=== PATIENT | female | born 1945 | race American Indian/Alaskan Native ===

== ENCOUNTER 2021-12-02 13:45 | Inpatient (IN) | payer MEDICARE ==
[2021-12-02] MEDS ORDERED: ONDANSETRON 4 MG/2 ML INJ IV PRN (13:47)
[2021-12-02] MEDS ORDERED: ALBUTEROL 2.5 MG/3 ML NEBU IH PRN (13:47)
[2021-12-02] MEDS ORDERED: ACETAMINOPHEN 325 MG TAB PO PRN (13:47)
--- NOTE | 2021-12-02 13:50 | History and Physical Report ---
History of Present Illness Date of admission: 12/02/21 13:45 Chief complaint: Shortness of breath History of present illness: 76 YO Female with Vascular Dementia, Cerebral Atherosclerosis, Obesity, HTN, HLD, CHF, Seizure Disorder, CAD S/P CABG admitted to [facility] for psychiatric stabilization and was found to have increased confusion today with a pulse oximetry of 77% on room air. Patient seen and evaluated and found to have clinical assessment consistent with acute hypoxemic respiratory failure as well as CHF decompensation. Patient admitted directly to telemetry and initiated on CHF protocol. Patient also found to have elevated D-dimer. CTA chest was ordered and is pending at time of evaluation. Patient initiated on empiric therapeutic anticoagulation while awaiting results of CTA chest. Patient also have elevated troponin level which is consistent with NSTEMI. Cardiology team consulted. Patient is confused with diminished cognition which is her baseline. Patient has diminished cognition at time of evaluation but has a positive gag reflex and is able protect her airway without difficulty. Past History Past Medical History: heart failure, hypertension, hyperlipidemia, seizures Past Surgical History: CABG Social history: single. denies: smoking, alcohol abuse, prescription drug abuse Family history: diabetes, hypertension Medications and Allergies Allergies Allergy/AdvReac Type Severity Reaction Status Date / Time lisinopril Allergy Swelling Verified 11/24/21 01:53 tetracycline Allergy Hives Verified 11/24/21 01:53 aspirin AdvReac Vomiting Verified 11/24/21 01:54 codeine AdvReac Itching Verified 11/24/21 01:52 Home Medications Medication Instructions Recorded Confirmed Last Taken Type AtorvaSTATin [Lipitor] 40 mg PO QHS 11/24/21 11/24/21 Unknown History PARoxetine HCL [PARoxetine] 40 mg PO HS 11/24/21 11/24/21 Unknown History Potassium Chloride [Klor-Con 10] 10 meq PO DAILY 11/24/21 11/24/21 Unknown History QUEtiapine [SEROquel] 100 mg PO HS 11/24/21 11/24/21 Unknown History carvediloL [Coreg] 12.5 mg PO BID 11/24/21 11/24/21 Unknown History PARoxetine [Paxil] 40 mg PO QHS tablet 12/02/21 Unknown Rx QUEtiapine [SEROquel] 150 mg PO BID tablet 12/02/21 Unknown Rx traZODone [Desyrel] 75 mg PO QHS tablet 12/02/21 Unknown Rx Active Meds: Active Medications Acetaminophen (Acetaminophen 325 Mg Tab) 650 mg PO Q4H PRN PRN Reason: Pain MILD(1-3)/Fever >100.5/SAM Albuterol (Albuterol 2.5 Mg/3 Ml Nebu) 2.5 mg IH Q4HRT PRN PRN Reason: Shortness Of Breath Hydromorphone HCl (Hydromorphone 0.5 Mg/0.5 Ml Inj) 0.5 mg IV Q13H PRN PRN Reason: Pain , Severe (7-10) Oxycodone/Acetaminophen (Oxycodone /Acetaminophen 5-325mg Tab) 1 tab PO Q6H PRN PRN Reason: Pain, Moderate (4-6) Review of Systems ROS unobtainable: due to mental status Exam - Constitutional General appearance: Present: mild distress, obese - EENT Eyes: Present: PERRL ENT: clear oral mucosa, hearing decreased - Neck Neck: Present: supple, normal ROM - Respiratory Respiratory effort: labored Respiratory: bilateral: diminished, rhonchi - Cardiovascular Heart Sounds: Present: S1 & S2. Absent: rub, click - Extremities Extremities: pulses symmetrical Extremity abnormal: edema Peripheral Pulses: within normal limits - Abdominal General gastrointestinal: Present: soft, non-tender, non-distended, normal bowel sounds Female genitourinary: Present: normal - Integumentary Integumentary: Present: clear, warm, dry - Musculoskeletal Musculoskeletal: generalized weakness - Psychiatric Psychiatric: no appropriate mood/affect, no intact judgment & insight, no memory intact, cooperative - Neurologic Neurologic: CNII-XII intact, no focal deficits, moves all extremities, no gait normal Assessment and Plan - Patient Problems (1) NSTEMI (non-ST elevated myocardial infarction) Current Visit: Yes Status: Acute Plan to address problem: ACS protocol: Serial cardiac enzymes, EKG, telemetry monitoring, therapeutic anticoagulation, cardiology team consulted, echocardiogram ordered and pending at time of admission. Further care and evaluation as per cardiology team. (2) Acute hypoxemic respiratory failure Current Visit: Yes Status: Acute Plan to address problem: Supplemental oxygen, pulse oximetry, chest x-ray, nebulizer therapy, CT scan chest, arterial blood gas, pulmonary toilet (3) CHF (congestive heart failure) Current Visit: No Status: Acute Qualifiers: Heart failure chronicity: chronic Plan to address problem: Strict I's/O, monitor urine output every shift, daily weight, afterload reduction, blood pressure control, thyroid panel, magnesium level, echocardiogram ordered and pending at time of admission, cardiology team cons ulted. (4) Cerebral atherosclerosis Current Visit: No Status: Acute Plan to address problem: Risk factor reduction, supportive care. (5) Generalized anxiety disorder Current Visit: No Status: Acute Plan to address problem: Benzodiazepine therapy as clinically indicated. (6) Hypertension Current Visit: No Status: Acute Qualifiers: Hypertension type: primary hypertension Qualified Code(s): I10 - Essential (primary) hypertension Plan to address problem: Monitor blood pressure every shift, continue medical management. (7) Major depression Current Visit: No Status: Acute Qualifiers: Psychotic features: with psychotic features Plan to address problem: Continue medical management, mental health team consult placed. (8) Vascular dementia with behavioral disturbance Current Visit: No Status: Acute Plan to address problem: Performed, verbal redirection, benzodiazepine therapy as clinically indicated. (9) DVT prophylaxis Current Visit: Yes Status: Acute Plan to address problem: SCD to bilateral lower extremities while in bed, continue therapeutic anticoagulation. (10) Advance care planning Current Visit: No Status: Acute Plan to address problem: Disease education conducted, care plan discussed, diagnosis discussed, prognosis discussed, patient is full code, +30 minutes. (11) Preventative health care Current Visit: No Status: Acute Plan to address problem: Outpatient follow-up with primary care physician for all age and risk factor appropriate screening test. Outpatient psychiatry follow-up.
[2021-12-02] MEDS: FUROSEMIDE 20 MG/2 ML INJ IV SCH (19:08)
[2021-12-02 19:22] LABS: ABG Base Excess -0.1 mmol/L (-2.0-3.0); ABG HCO3 23.8 mmol/L (20.0-26.0); ABG Methemoglobin 0.3 % (0.0-1.5); ABG Oxygen Saturation 89.5 % (95.0-99.0); ABG PCO2 35.8 mm Hg; ABG PH 7.441 pH Units (7.350-7.450); ABG PO2 52.4 mm Hg (80.0-90.0)
[2021-12-02 21:59] LABS: Chol/HDL Ratio 4.77 %
[2021-12-02] MEDS ORDERED: NON-FORMULARY EACH (Paroxetine Hcl [Paroxetine] 40 MG Tablet) PO SCH (22:00)
[2021-12-02] MEDS: carvediloL 12.5 MG TAB PO SCH (22:32)
[2021-12-02 22:37] LABS: Free T4 (Free Thyroxine) 1.18 ng/dL (0.76-1.46)
[2021-12-02] MEDS: traZODone 50 MG TAB PO SCH (22:56)
[2021-12-02] MEDS: QUEtiapine 100 MG TAB PO SCH (22:58)
[2021-12-02] MEDS: PARoxetine 20 MG TAB PO SCH (22:58)
[2021-12-02] MEDS ORDERED: ZIPRASIDONE MESYLATE 20 MG VIAL IM ONE (23:48)
[2021-12-03] MEDS ORDERED: WATER FOR INJ Sterile (PF) 10 ML ONE ×2 (00:17→09:18)
[2021-12-03] MEDS: ENOXAPARIN 80 MG/0.8 ML INJ SUB-Q SCH ×4 (00:34→21:52)
--- NOTE | 2021-12-03 08:27 | Progress Note ---
Subjective Date of service: 12/02/21 Subjective Comment: Patients oxygen level in the 80%. Ddimer elevated.Patient discharged to medical floor for further workup. Medications and Allergies Allergies Allergy/AdvReac Type Severity Reaction Status Date / Time lisinopril Allergy Swelling Verified 11/24/21 01:53 tetracycline Allergy Hives Verified 11/24/21 01:53 aspirin AdvReac Vomiting Verified 11/24/21 01:54 codeine AdvReac Itching Verified 11/24/21 01:52 Home Medications Medication Instructions Recorded Confirmed Last Taken Type AtorvaSTATin [Lipitor] 40 mg PO QHS 11/24/21 11/24/21 Unknown History PARoxetine HCL [PARoxetine] 40 mg PO HS 11/24/21 11/24/21 Unknown History Potassium Chloride [Klor-Con 10] 10 meq PO DAILY 11/24/21 11/24/21 Unknown History QUEtiapine [SEROquel] 100 mg PO HS 11/24/21 11/24/21 Unknown History carvediloL [Coreg] 12.5 mg PO BID 11/24/21 11/24/21 Unknown History PARoxetine [Paxil] 40 mg PO QHS tablet 12/02/21 Unknown Rx QUEtiapine [SEROquel] 150 mg PO BID tablet 12/02/21 Unknown Rx traZODone [Desyrel] 75 mg PO QHS tablet 12/02/21 Unknown Rx Active Meds: Active Medications Acetaminophen (Acetaminophen 325 Mg Tab) 650 mg PO Q4H PRN PRN Reason: Pain MILD(1-3)/Fever >100.5/SAM Albuterol (Albuterol 2.5 Mg/3 Ml Nebu) 2.5 mg IH Q4HRT PRN PRN Reason: Shortness Of Breath Atorvastatin Calcium (Atorvastatin 40 Mg Tab) 40 mg PO QHS [facility] Last Admin: 12/02/21 22:56 Dose: 40 mg Carvedilol (Carvedilol 12.5 Mg Tab) 12.5 mg PO BID [facility] Last Admin: 12/02/21 22:32 Dose: 12.5 mg Enoxaparin Sodium (Enoxaparin 80 Mg/0.8 Ml Inj) 80 mg SUB-Q Q12HR [facility]; Protocol Last Admin: 12/03/21 00:34 Dose: 80 mg Furosemide (Furosemide 20 Mg/2 Ml Inj) 20 mg IV BID@0600,1800 [facility] Last Admin: 12/02/21 19:08 Dose: 20 mg Hydromorphone HCl (Hydromorphone 0.5 Mg/0.5 Ml Inj) 0.5 mg IV Q13H PRN PRN Reason: Pain , Severe (7-10) Magnesium Sulfate (Magnesium Sulfate 2gm/50ml) 2 gm in 50 mls @ 25 mls/hr IV ONCE ONE Stop: 12/03/21 10:22 Ondansetron HCl (Ondansetron 4 Mg/2 Ml Inj) 4 mg IV Q8H PRN PRN Reason: Nausea And Vomiting Oxycodone/Acetaminophen (Oxycodone /Acetaminophen 5-325mg Tab) 1 tab PO Q6H PRN PRN Reason: Pain, Moderate (4-6) Paroxetine HCl (Paroxetine 20 Mg Tab) 40 mg PO QHS [facility] Last Admin: 12/02/21 22:58 Dose: 40 mg Quetiapine Fumarate (Quetiapine 100 Mg Tab) 100 mg PO HS [facility] Last Admin: 12/02/21 22:58 Dose: 100 mg Sodium Chloride (Sodium Chloride 0.9% 10 Ml Flush Syringe) 10 ml IV BID [facility] Last Admin: 12/02/21 21:45 Dose: 10 ml Sodium Chloride (Sodium Chloride 0.9% 10 Ml Flush Syringe) 10 ml IV PRN PRN PRN Reason: LINE FLUSH Trazodone HCl (Trazodone 50 Mg Tab) 75 mg PO QHS [facility] Last Admin: 12/02/21 22:56 Dose: 75 mg Results - Results Labs/Vitals: Laboratory Last Values ABG pH 7.441 pH Units (7.350-7.450) 12/02/21 18:53 ABG pCO2 35.8 mm Hg 12/02/21 18:53 ABG pO2 52.4 mm Hg (80.0-90.0) L 12/02/21 18:53 ABG HCO3 23.8 mmol/L (20.0-26.0) 12/02/21 18:53 ABG O2 Saturation 89.5 % (95.0-99.0) L 12/02/21 18:53 ABG O2 Content 12.2 (0.0-44) 12/02/21 18:53 ABG Base Excess -0.1 mmol/L (-2.0-3.0) 12/02/21 18:53 ABG Hemoglobin 9.8 gm/dl (12.0-16.0) L 12/02/21 18:53 ABG Carboxyhemoglobin 1.5 % (0.0-5.0) 12/02/21 18:53 ABG Methemoglobin 0.3 % (0.0-1.5) 12/02/21 18:53 Oxyhemoglobin 87.9 % (95.0-99.0) L 12/02/21 18:53 FiO2 21 % 12/02/21 18:53 POC Glucose 88 mg/dL (70-105) 12/03/21 00:35 Magnesium 1.30 mg/dL (1.7-2.3) L 12/02/21 Unknown Troponin T 0.038 ng/mL (0.00-0.029) H 12/02/21 Unknown Triglycerides 117 mg/dL (2-149) 12/02/21 Unknown Cholesterol 172 mg/dL (50-199) 12/02/21 Unknown LDL Cholesterol Direct 111 mg/dL (50-130) 12/02/21 Unknown HDL Cholesterol 36 mg/dL (40-59) L 12/02/21 Unknown Cholesterol/HDL Ratio 4.77 % 12/02/21 Unknown TSH 0.874 mlU/mL (0.270-4.200) 12/02/21 Unknown Free T4 1.18 ng/dL (0.76-1.46) 12/02/21 Unknown Last Vital Signs Temp 97.4 F L 12/03/21 07:25 Pulse 91 H 12/03/21 07:25 Resp 22 12/03/21 07:25 BP 110/50 12/03/21 07:25 Pulse Ox 94 12/03/21 07:25
[2021-12-03] MEDS ORDERED: MAGNESIUM SULFATE 2 GM/50 ML BAG IV ONE (09:00)
[2021-12-03] MEDS ORDERED: ZIPRASIDONE MESYLATE 20 MG VIAL IM NR (09:00)
[2021-12-03] MEDS: FUROSEMIDE 20 MG/2 ML INJ IV SCH (09:07)
[2021-12-03] MEDS ORDERED: MAGNESIUM SULFATE 2 GM in SODIUM CHLORIDE 0.9% 50 ML IV ONE (10:00)
[2021-12-03 10:59] LABS: Basophils % (Auto) 0.5 % (0.0-1.8); Eosinophils # (Auto) 0.1 K/mm3 (0.0-0.4); Eosinophils % (Auto) 1.1 % (0.0-4.3); Hematocrit 33.8 % (30.3-42.9); Hemoglobin 10.9 gm/dl (10.1-14.3); Lymphocytes # (Auto) 1.1 K/mm3 (1.2-5.4); Lymphocytes % (Auto) 17.8 % (13.4-35.0); Mean Corpuscular HGB Conc 32 % (30-34); Mean Corpuscular Volume 85 fl (79-97); Monocytes # (Auto) 0.8 K/mm3 (0.0-0.8); Monocytes % (Auto) 11.9 % (0.0-7.3); Platelet Count 330 K/mm3 (140-440); Red Blood Count 3.98 M/mm3 (3.65-5.03); Red Cell Distribution Width 16.2 % (13.2-15.2)
[2021-12-03] MEDS: carvediloL 12.5 MG TAB PO SCH ×2 (11:13→21:53)
[2021-12-03 11:19] LABS: Albumin 2.7 g/dL (3.9-5); Calcium 8.8 mg/dL (8.4-10.2)
--- NOTE | 2021-12-03 11:39 | Progress Note ---
Assessment and Plan Assessment and plan: #Acute hypoxemic respiratory failure Supplemental oxygen, pulse oximetry, chest x-ray, nebulizer therapy, CT scan chest, arterial blood gas, pulmonary toilet -Continue empiric Lovenox -CT angiogram of the chest ordered, will be performed today -TTE pending #Acute on chronic heart failure -TTE pending to evaluate EF -will continue coreg -Cardiology consulted, assistance appreciated #NSTEMI (non-ST elevated myocardial infarction), type II -likely secondary to CHF exacerbation -plan as above #Coronary disease status post CABG -continue statin and BB #Vascular dementia with behavioral disturbance #Major depression #Generalized anxiety disorder -sitter while inpatient -Continue Paxil and Seroquel -Psychiatry following, assistance appreciated #History of stroke #Cerebral atherosclerosis -continue statin, risk factor reduction, supportive care #Hypomagnesemia -will replete and monitor #Hypertension -Monitor blood pressure every shift, continue medical management History Interval history: No acute events overnight. Patient response to questions with yes and nos. She denies chest pain at this time. Patient awaiting CT angio of the chest. It was unable to be performed yesterday due to agitation. We will attempt again today with premedication prior to transport to CT. Hospitalist Physical - Physical exam Narrative exam: GENERAL: Well-developed well-nourished. In no acute distress. HEENT: Normocephalic. Atraumatic. NECK: Supple. CHEST/LUNGS: CTAB on room air HEART/CARDIOVASCULAR: RRR. No murmur, rubs or gallops appreciated. ABDOMEN: +BS. NT/ND. SKIN: No rashes noted. NEURO: No focal motor deficit. MUSCULOSKELETAL: No joint effusion EXTREMITIES: No cyanosis, clubbing or edema. PSYCH: Alert to person. Flat affect. - Constitutional Vitals: Temp Pulse Resp BP Pulse Ox 98 F 88 20 133/49 96 12/03/21 11:12 12/03/21 11:12 12/03/21 11:12 12/03/21 11:12 12/03/21 11:12 HEART Score - HEART Score Troponin: Troponin T 0.038 ng/mL (0.00-0.029) H 12/02/21 Unknown Results - Labs CBC & Chem 7: 12/03/21 10:32 12/03/21 10:32 Labs: Laboratory Last Values WBC 6.4 K/mm3 (4.5-11.0) 12/03/21 10:32 RBC 3.98 M/mm3 (3.65-5.03) 12/03/21 10:32 Hgb 10.9 gm/dl (10.1-14.3) 12/03/21 10:32 Hct 33.8 % (30.3-42.9) 12/03/21 10:32 MCV 85 fl (79-97) 12/03/21 10:32 MCH 27 pg (28-32) L 12/03/21 10:32 MCHC 32 % (30-34) 12/03/21 10:32 RDW 16.2 % (13.2-15.2) H 12/03/21 10:32 Plt Count 330 K/mm3 (140-440) 12/03/21 10:32 Lymph % (Auto) 17.8 % (13.4-35.0) 12/03/21 10:32 [place] % (Auto) 11.9 % (0.0-7.3) H 12/03/21 10:32 Eos % (Auto) 1.1 % (0.0-4.3) 12/03/21 10:32 Baso % (Auto) 0.5 % (0.0-1.8) 12/03/21 10:32 Lymph # (Auto) 1.1 K/mm3 (1.2-5.4) L 12/03/21 10:32 [place] # (Auto) 0.8 K/mm3 (0.0-0.8) 12/03/21 10:32 Eos # (Auto) 0.1 K/mm3 (0.0-0.4) 12/03/21 10:32 Baso # (Auto) 0.0 K/mm3 (0.0-0.1) 12/03/21 10:32 Seg Neutrophils % 68.7 % (40.0-70.0) 12/03/21 10:32 Seg Neutrophils # 4.4 K/mm3 (1.8-7.7) 12/03/21 10:32 ABG pH 7.441 pH Units (7.350-7.450) 12/02/21 18:53 ABG pCO2 35.8 mm Hg 12/02/21 18:53 ABG pO2 52.4 mm Hg (80.0-90.0) L 12/02/21 18:53 ABG HCO3 23.8 mmol/L (20.0-26.0) 12/02/21 18:53 ABG O2 Saturation 89.5 % (95.0-99.0) L 12/02/21 18:53 ABG O2 Content 12.2 (0.0-44) 12/02/21 18:53 ABG Base Excess -0.1 mmol/L (-2.0-3.0) 12/02/21 18:53 ABG Hemoglobin 9.8 gm/dl (12.0-16.0) L 12/02/21 18:53 ABG Carboxyhemoglobin 1.5 % (0.0-5.0) 12/02/21 18:53 ABG Methemoglobin 0.3 % (0.0-1.5) 12/02/21 18:53 Oxyhemoglobin 87.9 % (95.0-99.0) L 12/02/21 18:53 FiO2 21 % 12/02/21 18:53 Sodium 141 mmol/L (137-145) 12/03/21 10:32 Potassium 4.3 mmol/L (3.6-5.0) 12/03/21 10:32 Chloride 104.7 mmol/L (98-107) 12/03/21 10:32 Carbon Dioxide 24 mmol/L (22-30) 12/03/21 10:32 Anion Gap 17 mmol/L 12/03/21 10:32 BUN 20 mg/dL (7-17) H 12/03/21 10:32 Creatinine 1.1 mg/dL (0.6-1.2) 12/03/21 10:32 Estimated GFR 58 ml/min 12/03/21 10:32 BUN/Creatinine Ratio 18 % 12/03/21 10:32 Glucose 80 mg/dL (65-100) 12/03/21 10:32 POC Glucose 88 mg/dL (70-105) 12/03/21 00:35 Calcium 8.8 mg/dL (8.4-10.2) 12/03/21 10:32 Magnesium 1.30 mg/dL (1.7-2.3) L 12/02/21 Unknown Total Bilirubin 0.80 mg/dL (0.1-1.2) 12/03/21 10:32 AST 24 units/L (5-40) 12/03/21 10:32 ALT 15 units/L (7-56) 12/03/21 10:32 Alkaline Phosphatase 213 units/L (35-129) H 12/03/21 10:32 Troponin T 0.038 ng/mL (0.00-0.029) H 12/02/21 Unknown Total Protein 6.4 g/dL (6.3-8.2) 12/03/21 10:32 Albumin 2.7 g/dL (3.9-5) L 12/03/21 10:32 Albumin/Globulin Ratio 0.7 % 12/03/21 10:32 Triglycerides 117 mg/dL (2-149) 12/02/21 Unknown Cholesterol 172 mg/dL (50-199) 12/02/21 Unknown LDL Cholesterol Direct 111 mg/dL (50-130) 12/02/21 Unknown HDL Cholesterol 36 mg/dL (40-59) L 12/02/21 Unknown Cholesterol/HDL Ratio 4.77 % 12/02/21 Unknown TSH 0.874 mlU/mL (0.270-4.200) 12/02/21 Unknown Free T4 1.18 ng/dL (0.76-1.46) 12/02/21 Unknown Bashir/IV: Voiding Method Toilet Active Medications - Current Medications Current Medications: Generic Name Dose Route Start Last Admin Trade Name Freq PRN Reason Stop Dose Admin Acetaminophen 650 mg 12/02/21 13:47 Acetaminophen 325 Mg Tab PO Q4H PRN Pain MILD(1-3)/Fever >100.5/SAM Albuterol 2.5 mg 12/02/21 13:47 Albuterol 2.5 Mg/3 Ml Nebu IH Q4HRT PRN Shortness Of Breath Atorvastatin Calcium 40 mg 12/02/21 22:00 12/02/21 22:56 Atorvastatin 40 Mg Tab PO 40 mg QHS [facility] Administration Carvedilol 12.5 mg 12/02/21 22:00 12/03/21 11:13 Carvedilol 12.5 Mg Tab PO 12.5 mg BID [facility] Administration Enoxaparin Sodium 80 mg 12/02/21 20:37 12/03/21 11:13 Enoxaparin 80 Mg/0.8 Ml Inj SUB-Q 80 mg Q12HR [facility] Administration Protocol Furosemide 20 mg 12/02/21 18:00 12/03/21 09:07 Furosemide 20 Mg/2 Ml Inj IV Not Given BID@0600,1800 [facility] Hydromorphone HCl 0.5 mg 12/02/21 13:47 Hydromorphone 0.5 Mg/0.5 Ml Inj IV Q13H PRN Pain , Severe (7-10) Magnesium Sulfate 2 gm/ Sodium 54 mls @ 25 mls/hr 12/03/21 10:00 12/03/21 11:13 Chloride IV 12/03/21 12:09 25 mls/hr ONCE ONE Administration Ondansetron HCl 4 mg 12/02/21 13:47 Ondansetron 4 Mg/2 Ml Inj IV Q8H PRN Nausea And Vomiting Oxycodone/Acetaminophen 1 tab 12/02/21 13:47 Oxycodone /Acetaminophen 5-325mg Tab PO Q6H PRN Pain, Moderate (4-6) Paroxetine HCl 40 mg 12/02/21 22:00 12/02/21 22:58 Paroxetine 20 Mg Tab PO 40 mg QHS [facility] Administration Quetiapine Fumarate 100 mg 12/02/21 22:00 12/02/21 22:58 Quetiapine 100 Mg Tab PO 100 mg HS [facility] Administration Sodium Chloride 10 ml 12/02/21 22:00 12/03/21 11:13 Sodium Chloride 0.9% 10 Ml Flush Syringe IV 10 ml BID [facility] Administration Sodium Chloride 10 ml 12/02/21 13:47 Sodium Chloride 0.9% 10 Ml Flush Syringe IV PRN PRN LINE FLUSH Trazodone HCl 75 mg 12/02/21 22:00 12/02/21 22:56 Trazodone 50 Mg Tab PO 75 mg QHS [facility] Administration
--- NOTE | 2021-12-03 12:02 | Consultation ---
History of Present Illness Consult date: 12/03/21 Requesting physician: HIMA MADISON Consult reason: congestive heart failure History of present illness: Patient is 76-year-old female with a past medical history of dementia, hypertension, CHF, seizures, obesity, who was admitted to [facility] for psychiatric stabilization and found to have increased confusion and pulse ox of 77% on room air yesterday. History is taken from chart due to patient's mental status at time of interview. Per documentation patient found to be hypoxic and short of breath yesterday. Lab work showed patient to have elevated D-dimer, minimally elevated troponins, and elevated BNP. Of note per documentation at baseline patient is confused and has diminished cognition. Patient is previously unknown to our practice. Cardiology is consulted for heart failure Past History Past Medical History: heart failure, hypertension, hyperlipidemia, seizures Past Surgical History: CABG Social history: single. denies: smoking, alcohol abuse, prescription drug abuse Family history: diabetes, hypertension Medications and Allergies Allergies Allergy/AdvReac Type Severity Reaction Status Date / Time lisinopril Allergy Swelling Verified 11/24/21 01:53 tetracycline Allergy Hives Verified 11/24/21 01:53 aspirin AdvReac Vomiting Verified 11/24/21 01:54 codeine AdvReac Itching Verified 11/24/21 01:52 Home Medications Medication Instructions Recorded Confirmed Last Taken Type AtorvaSTATin [Lipitor] 40 mg PO QHS 11/24/21 11/24/21 Unknown History PARoxetine HCL [PARoxetine] 40 mg PO HS 11/24/21 11/24/21 Unknown History Potassium Chloride [Klor-Con 10] 10 meq PO DAILY 11/24/21 11/24/21 Unknown History QUEtiapine [SEROquel] 100 mg PO HS 11/24/21 11/24/21 Unknown History carvediloL [Coreg] 12.5 mg PO BID 11/24/21 11/24/21 Unknown History PARoxetine [Paxil] 40 mg PO QHS tablet 12/02/21 Unknown Rx QUEtiapine [SEROquel] 150 mg PO BID tablet 12/02/21 Unknown Rx traZODone [Desyrel] 75 mg PO QHS tablet 12/02/21 Unknown Rx Active Meds: Active Medications Acetaminophen (Acetaminophen 325 Mg Tab) 650 mg PO Q4H PRN PRN Reason: Pain MILD(1-3)/Fever >100.5/SAM Albuterol (Albuterol 2.5 Mg/3 Ml Nebu) 2.5 mg IH Q4HRT PRN PRN Reason: Shortness Of Breath Atorvastatin Calcium (Atorvastatin 40 Mg Tab) 40 mg PO QHS [facility] Last Admin: 12/02/21 22:56 Dose: 40 mg Carvedilol (Carvedilol 12.5 Mg Tab) 12.5 mg PO BID [facility] Last Admin: 12/03/21 11:13 Dose: 12.5 mg Enoxaparin Sodium (Enoxaparin 80 Mg/0.8 Ml Inj) 80 mg SUB-Q Q12HR [facility]; Protocol Last Admin: 12/03/21 11:13 Dose: 80 mg Furosemide (Furosemide 20 Mg/2 Ml Inj) 20 mg IV BID@0600,1800 [facility] Last Admin: 12/03/21 09:07 Dose: Not Given Hydromorphone HCl (Hydromorphone 0.5 Mg/0.5 Ml Inj) 0.5 mg IV Q13H PRN PRN Reason: Pain , Severe (7-10) Magnesium Sulfate 2 gm/ Sodium (Chloride) 54 mls @ 25 mls/hr IV ONCE ONE Stop: 12/03/21 12:09 Last Admin: 12/03/21 11:13 Dose: 25 mls/hr Ondansetron HCl (Ondansetron 4 Mg/2 Ml Inj) 4 mg IV Q8H PRN PRN Reason: Nausea And Vomiting Oxycodone/Acetaminophen (Oxycodone /Acetaminophen 5-325mg Tab) 1 tab PO Q6H PRN PRN Reason: Pain, Moderate (4-6) Paroxetine HCl (Paroxetine 20 Mg Tab) 40 mg PO QHS [facility] Last Admin: 12/02/21 22:58 Dose: 40 mg Quetiapine Fumarate (Quetiapine 100 Mg Tab) 100 mg PO HS [facility] Last Admin: 12/02/21 22:58 Dose: 100 mg Sodium Chloride (Sodium Chloride 0.9% 10 Ml Flush Syringe) 10 ml IV BID [facility] Last Admin: 12/03/21 11:13 Dose: 10 ml Sodium Chloride (Sodium Chloride 0.9% 10 Ml Flush Syringe) 10 ml IV PRN PRN PRN Reason: LINE FLUSH Trazodone HCl (Trazodone 50 Mg Tab) 75 mg PO QHS [facility] Last Admin: 12/02/21 22:56 Dose: 75 mg Review of Systems ROS unobtainable: due to mental status Physical Examination Vital Signs Temp Pulse Resp BP Pulse Ox 97.3 F L 84 20 107/56 96 12/02/21 18:40 12/02/21 18:40 12/02/21 18:40 12/02/21 18:40 12/02/21 18:40 General appearance: no acute distress HEENT: Positive: Normocephaly Neck: Positive: trachea midline Cardiac: Positive: Reg Rate and Rhythm Lungs: Positive: Normal Breath Sounds Neuro: Positive: Grossly Intact Abdomen: Positive: Soft Skin: Negative: Rash, Suspicious Lesions, Ulceration Extremities: Present: upper extr. pulses, edema Results 12/03/21 10:32 12/03/21 10:32 Cardiac Enzymes 12/03/21 Range/Units 10:32 AST 24 (5-40) units/L Lipids 12/02/21 Range/Units Unknown Triglycerides 117 (2-149) mg/dL Cholesterol 172 (50-199) mg/dL HDL Cholesterol 36 L (40-59) mg/dL Cholesterol/HDL Ratio 4.77 % CBC 12/03/21 Range/Units 10:32 WBC 6.4 (4.5-11.0) K/mm3 RBC 3.98 (3.65-5.03) M/mm3 Hgb 10.9 (10.1-14.3) gm/dl Hct 33.8 (30.3-42.9) % Plt Count 330 (140-440) K/mm3 Lymph # (Auto) 1.1 L (1.2-5.4) K/mm3 [place] # (Auto) 0.8 (0.0-0.8) K/mm3 Eos # (Auto) 0.1 (0.0-0.4) K/mm3 Baso # (Auto) 0.0 (0.0-0.1) K/mm3 Comprehensive Metabolic Panel 12/03/21 Range/Units 10:32 Sodium 141 (137-145) mmol/L Potassium 4.3 (3.6-5.0) mmol/L Chloride 104.7 (98-107) mmol/L Carbon Dioxide 24 (22-30) mmol/L BUN 20 H (7-17) mg/dL Creatinine 1.1 (0.6-1.2) mg/dL Glucose 80 (65-100) mg/dL Calcium 8.8 (8.4-10.2) mg/dL AST 24 (5-40) units/L ALT 15 (7-56) units/L Alkaline Phosphatase 213 H (35-129) units/L Total Protein 6.4 (6.3-8.2) g/dL Albumin 2.7 L (3.9-5) g/dL - Imaging and Cardiology Echo: pending Assessment and Plan Patient is 76-year-old female with a past medical history of dementia, hypertension, CHF, seizures, obesity, who was admitted to [facility] for psychiatric stabilization and found to have increased confusion and pulse ox of 77% on room air Acute CHF NSTEMI suspect type II Hypertension Altered mental status Vascular dementia Hyperlipidemia Seizure disorder Elevated D-dimer Plan: No EKG in chart. EKG pending Telemetry reviewed patient in sinus rhythm with no events Troponin is noted to be minimally elevated and stable. Suspect troponin elevation due to acute CHF Patient currently on atorvastatin 80 mg p.o. nightly, carvedilol 12.5 mg p.o. twice daily BNP noted to be elevated and patient had shortness of breath with hypoxia agree with Lasix 20 mg IV twice daily for diuresis Strict I&O's, daily weights, close monitoring of renal function, repeat BMP in the Echo pending CT chest pending No aspirin GREG or ARB due to documented allergy Patient seen in conjunction with Dr. Chapin who agrees with this plan of care - Patient Problems (1) Acute hypoxemic respiratory failure Current Visit: Yes Status: Acute (2) NSTEMI (non-ST elevated myocardial infarction) Current Visit: Yes Status: Acute (3) CHF (congestive heart failure) Current Visit: No Status: Acute Qualifiers: Heart failure chronicity: chronic (4) Cerebral atherosclerosis Current Visit: No Status: Acute (5) Generalized anxiety disorder Current Visit: No Status: Acute (6) Hypertension Current Visit: No Status: Acute Qualifiers: Hypertension type: primary hypertension Qualified Code(s): I10 - Essential (primary) hypertension (7) Major depression Current Visit: No Status: Acute Qualifiers: Psychotic features: with psychotic features (8) Vascular dementia with behavioral disturbance Current Visit: No Status: Acute
[2021-12-03] MEDS ORDERED: LORazepam 2 MG/ML VIAL IV SCH (14:30)
--- NOTE | 2021-12-03 14:47 | Progress Note ---
Subjective - Reason for Consult Reason for consult: MHE - Chief Complaint Chief complaint: DATE SEEN:12/03/2021 Patient seen today on the medical floor after being transferred for shortness of breath. Patient was asleep in room with sitter.Nursing staff states that patient has been crying and whining. Patient is confused. Mental Status Exam - Vital signs Last Vital Signs Temp 98 F 12/03/21 11:12 Pulse 88 12/03/21 11:12 Resp 20 12/03/21 11:12 BP 133/49 12/03/21 11:12 Pulse Ox 96 12/03/21 11:12
--- NOTE | 2021-12-03 14:57 | Cat Scan Report ---
CT angio chest INDICATION / CLINICAL INFORMATION: dypsnea. TECHNIQUE: Axial CT images were obtained through the chest after injection of 85 cc of Omnipaque 350 IV contrast. 3 plane MIP and/or 3D reconstructions were produced. All CT scans at this location are p erformed using CT dose reduction for ALARA by means of automated exposure control. COMPARISON: Chest radiograph from yesterday, 12/02/2021 FINDINGS: PULMONARY ARTERIES: Acute bilateral pulmonary emboli. Most proximal involvement on the right is locat ed at the proximal segmental right pulmonary artery and interlobar pulmonary artery with segmental an d subsegment involvement of the right middle and right lower lobes. Most proximal involvement on the left is located within the proximal segmental branch of the left upper lobe with additional involveme nt of the left interlobar pulmonary artery and segmental and subsegmental involvement of the lingula and left lower lobes. THORACIC AORTA: Moderate atherosclerotic calcification without acute abnormality. HEART: RV/LV ratio measures 1.2 cm. There is mild reflux of contrast into hepatic veins. No pericardi al effusion. CORONARY ARTERY CALCIFICATION: Mild coronary artery calcifications. LYMPHADENOPATHY: No significant thoracic lymphadenopathy. LUNGS/PLEURA: There are small left pleural effusion with mild airspace consolidation of the left lowe r lobe. Mild airspace opacity within the lingula likely reflects volume loss. Right lung is clear, as vinod from scarring/volume loss in the right upper lung. No pneumothorax. OTHER FINDINGS: Mild secretions within the esophagus, may reflect esophageal dysmotility or gastroeso phageal reflux. No significant esophageal wall thickening. UPPER ABDOMEN: No acute findings. SKELETAL SYSTEM: Healing nondisplaced right third through ninth rib fractures. Healing left lateral s ixth rib fracture and recent appearing left lateral seventh through ninth rib fractures IMPRESSION: 1. Positive for acute bilateral pulmonary emboli, as above, with evidence of right heart strain. 2. Small left pleural effusion with airspace consolidation of the left lower lobe, may reflect atelec tasis or pneumonia. 3. Recent-appearing nondisplaced left lateral seventh through ninth rib fractures. Several additional healing bilateral rib fractures. 4. Other incidental findings as above. CRITICAL RESULT: Time of Discovery (MIXING SUPERVISOR/CDT): 12/03/2021 at 1:45 PM Time of Communication (MIXING SUPERVISOR/CDT): 12/03/2021 at 1:50 PM Licensed Practitioner Receiving Report: MARIEL Cramer Read-Back Performed: Yes. Signer Name: Romero Yanes MD Signed: 12/03/2021 2:51 PM Workstation Name: [email or web address]
[2021-12-03] MEDS: traZODone 50 MG TAB PO SCH (21:52)
[2021-12-03] MEDS: PARoxetine 20 MG TAB PO SCH (21:52)
[2021-12-03] MEDS: QUEtiapine 100 MG TAB PO SCH (21:53)
[2021-12-04] MEDS: FUROSEMIDE 20 MG/2 ML INJ IV SCH ×2 (06:16→08:44)
--- NOTE | 2021-12-04 10:28 | Progress Note ---
Assessment and Plan Patient is 76-year-old female with a past medical history of dementia, hypertension, CHF, seizures, obesity, who was admitted to [facility] for psychiatric stabilization and found to have increased confusion and pulse ox of 77% on room air Acute HFpEF NSTEMI suspect type II Bilateral PEs-shown on CT Hypertension Altered mental status Vascular dementia Hyperlipidemia Seizure disorder Elevated D-dimer Echo 12/02/2021-EF 50 to 55%. Mild diastolic dysfunction is present impaired laxation pattern. Right ventricle systolic function is normal. Right ventricle is mildly dilated. Highest mean aortic valve gradient 50 mmHg. Peak aortic valve gradient is 25 mmHg. Mild aortic stenosis. No aortic regurgitation is present mild tricuspid regurgitation. Trace pulmonic regurgitation Plan: No EKG in chart. EKG pending Telemetry reviewed patient in sinus rhythm with no events Troponin is noted to be minimally elevated and stable. Suspect troponin elevation due to bilateral PEs and acute HFpEF Patient anticoagulated on therapeutic. Management per primary team Patient currently on atorvastatin 80 mg p.o. nightly, carvedilol 12.5 mg p.o. twice daily Patient appears near euvolemic on exam suspect shortness of breath. History of PEs. Will stop Lasix IV and convert to Lasix 20 mg p.o. daily No aspirin GREG or ARB due to documented allergy Due to bilateral PEs and patient mental status unable to perform ischemic eval at this time Cardiac status otherwise stable. Will see as needed Patient seen in conjunction with Dr. Chapin who agrees with this plan of care - Patient Problems (1) Acute hypoxemic respiratory failure Current Visit: Yes Status: Acute (2) NSTEMI (non-ST elevated myocardial infarction) Current Visit: Yes Status: Acute (3) CHF (congestive heart failure) Current Visit: No Status: Acute Qualifiers: Heart failure chronicity: chronic (4) Cerebral atherosclerosis Current Visit: No Status: Acute (5) Generalized anxiety disorder Current Visit: No Status: Acute (6) Hypertension Current Visit: No Status: Acute Qualifiers: Hypertension type: primary hypertension Qualified Code(s): I10 - Essential (primary) hypertension (7) Major depression Current Visit: No Status: Acute Qualifiers: Psychotic features: with psychotic features (8) Vascular dementia with behavioral disturbance Current Visit: No Status: Acute Subjective Date of service: 12/04/21 Principal diagnosis: Bilateral PEs Interval history: Patient resting in bed. Patient remains with altered mental status Sinus 70s on monitor with no event Objective Vital Signs Temp Pulse Resp BP BP Pulse Ox 12/04/21 08:55 95 12/04/21 05:32 97.8 F 76 20 120/82 96 12/04/21 00:45 94 12/03/21 22:15 97 12/03/21 22:05 97.9 F 75 20 126/55 94 12/03/21 21:53 79 126/55 12/03/21 18:00 98.5 F 81 20 132/77 95 12/03/21 14:00 88 12/03/21 13:00 98 12/03/21 11:12 98 F 88 20 133/49 96 - Physical Examination General: Other (Altered mental status) HEENT: Positive: Normocephaly Neck: Positive: trachea midline Cardiac: Positive: Reg Rate and Rhythm Lungs: Positive: Normal Breath Sounds Neuro: Positive: Grossly Intact Abdomen: Positive: Soft Skin: Negative: Rash, Suspicious Lesions, Ulceration Extremities: Present: upper extr. pulses, edema - Labs and Meds Cardiac Enzymes 12/03/21 Range/Units 10:32 AST 24 (5-40) units/L CBC 12/03/21 Range/Units 10:32 WBC 6.4 (4.5-11.0) K/mm3 RBC 3.98 (3.65-5.03) M/mm3 Hgb 10.9 (10.1-14.3) gm/dl Hct 33.8 (30.3-42.9) % Plt Count 330 (140-440) K/mm3 Lymph # (Auto) 1.1 L (1.2-5.4) K/mm3 [place] # (Auto) 0.8 (0.0-0.8) K/mm3 Eos # (Auto) 0.1 (0.0-0.4) K/mm3 Baso # (Auto) 0.0 (0.0-0.1) K/mm3 Comprehensive Metabolic Panel 12/03/21 Range/Units 10:32 Sodium 141 (137-145) mmol/L Potassium 4.3 (3.6-5.0) mmol/L Chloride 104.7 (98-107) mmol/L Carbon Dioxide 24 (22-30) mmol/L BUN 20 H (7-17) mg/dL Creatinine 1.1 (0.6-1.2) mg/dL Glucose 80 (65-100) mg/dL Calcium 8.8 (8.4-10.2) mg/dL AST 24 (5-40) units/L ALT 15 (7-56) units/L Alkaline Phosphatase 213 H (35-129) units/L Total Protein 6.4 (6.3-8.2) g/dL Albumin 2.7 L (3.9-5) g/dL - Imaging and Cardiology Echo: report reviewed - Telemetry EKG Rhythm: Sinus Rhythm - EKG Sinus rhythms and dysrhythmias: sinus rhythm
[2021-12-04] MEDS: ENOXAPARIN 80 MG/0.8 ML INJ SUB-Q SCH (10:35)
[2021-12-04] MEDS: carvediloL 12.5 MG TAB PO SCH ×2 (10:35→22:44)
--- NOTE | 2021-12-04 12:51 | Discharge Summary ---
Providers - Providers Date of Admission: 12/02/21 18:35 Date of discharge: 12/04/21 Attending physician: ALISON MINER MD 12/02/21 Consult to Cardiac Rehabilitation [CONS] Routine Reason For Exam: Phase 1 12/02/21 13:47 Consult to Physician [CONS] Routine Comment: Consulting Provider: ALENA PETERSON Physician Instructions: Reason For Exam: chf 12/02/21 20:45 Consult to Mental Health [CONS] Routine Reason For Exam: Depression Primary care physician: MELTING OPERATOR Hospitalization Reason for admission: Acute hypoxic respiratory failure Pertinent studies: Reviewed. Procedures: None. Hospital course: The patient is a 76 YO Female with Vascular Dementia, Cerebral Atherosclerosis, Obesity, HTN, HLD, CHF, Seizure Disorder, CAD S/P CABG admitted [facility] for psychiatric stabilization and was found to have increased confusion today with a pulse oximetry of 77% on room air. Patient seen and evaluated and found to have clinical assessment consistent with acute hypoxemic respiratory failure as well as CHF decompensation. Patient admitted directly to telemetry and initiated on CHF protocol. Patient also found to have elevated D-dimer consistent with NSTEMI type II. Cardiology was consulted.. CT angio chest was remarkable for acute bilateral pulmonary emboli with evidence of right heart strain. Patient underwent TTE revealing EF 50-55% with normal-sized LV, normal LV systolic function, normal LV wall thickness, normal LV segmental wall motion. RV is mildly dilated. RVSP is 47mmHg. Patient was initiated on Lovenox 1 mg/kg twice daily. Patient underwent bilateral venous lower extremity Dopplers that was remarkable for DVT and left lower extremity. The patient has since been transitioned to Eliquis 10 mg twice daily x7 days that will then be transition to 5 mg twice daily for minimum of 3 months. Patient is medically clear for discharge. Disposition: [address] [place] [address] Final Discharge Diagnosis (Prints w/discharge instructions): Acute hypoxic respiratory failure, acute on chronic heart failureruled out, NSTEMI type II, bilateral pulmonary embolism, deep vein thrombosis of left lower extremity, coronary artery disease status post CABG, vascular dementia with behavioral disturbance, major depression, generalized anxiety disorder, history of stroke, cerebral atherosclerosis, hypomagnesemia, hypertension. Time spent for discharge: 45 min Core Measure Documentation - Palliative Care Palliative Care/ Comfort Measures: Not Applicable - Core Measures Any of the following diagnoses?: DVT/PE - VTE Discharge Requirements Deep Vein Thrombosis/Pulmonary Embolism Present on Admission: Yes Has pt received <5 days of overlap therapy or INR<2.0: No Anticoagulant overlap therapy prescribed at discharge: No Contraindication No Overlap Therapy order at DC: Not Indicated Exam - Constitutional Vitals: Temp Pulse Resp BP Pulse Ox 97.8 F 76 20 120/82 95 12/04/21 05:32 12/04/21 05:32 12/04/21 05:32 12/04/21 05:32 12/04/21 08:55 General appearance: Present: no acute distress, well-nourished - EENT Eyes: Present: PERRL, EOM intact ENT: hearing intact, clear oral mucosa - Neck Neck: Present: supple, normal ROM - Respiratory Respiratory effort: normal Respiratory: bilateral: diminished - Cardiovascular Rhythm: regular Heart Sounds: Present: S1 & S2 - Extremities Extremities: no ischemia, pulses intact, pulses symmetrical, No edema, normal temperature, normal color Peripheral Pulses: within normal limits - Abdominal General gastrointestinal: Present: soft, non-tender, non-distended, normal bowel sounds Female genitourinary: Present: deferred - Rectal Rectal Exam: deferred - Integumentary Integumentary: Present: clear, warm, dry - Musculoskeletal Musculoskeletal: generalized weakness - Psychiatric Psychiatric: depressed, other (Flat affect) - Neurologic Neurologic: CNII-XII intact - Allied Health Allied health notes reviewed: nursing Plan Activity: advance as tolerated Diet: low salt Additional Instructions: The patient is a 76 YO Female with Vascular Dementia, Cerebral Atherosclerosis, Obesity, HTN, HLD, CHF, Seizure Disorder, CAD S/P CABG admitted [facility] for psychiatric stabilization and was found to have increased confusion today with a pulse oximetry of 77% on room air. Patient seen and evaluated and found to have clinical assessment consistent with acute hypoxemic respiratory failure as well as CHF decompensation. Patient admitted directly to telemetry and initiated on CHF protocol. Patient also found to have elevated D-dimer consistent with NSTEMI type II. Cardiology was consulted.. CT angio chest was remarkable for acute bilateral pulmonary emboli with evidence of right heart strain. Patient underwent TTE revealing EF 50-55% with normal- sized LV, normal LV systolic function, normal LV wall thickness, normal LV segmental wall motion. RV is mildly dilated. RVSP is 47mmHg. Patient was initiated on Lovenox 1 mg/kg twice daily. Patient underwent bilateral venous lower extremity Dopplers that was remarkable for DVT and left lower extremity. The patient has since been transitioned to Eliquis 10 mg twice daily x7 days that will then be transition to 5 mg twice daily for minimum of 3 months. Patient is medically clear for discharge. Care Plan Goals: Patient is medically clear for discharge. Assessment: The patient is a 76 YO Female with Vascular Dementia, Cerebral Atherosclerosis, Obesity, HTN, HLD, CHF, Seizure Disorder, CAD S/P CABG admitted to [facility] for psychiatric stabilization and was found to have increased confusion today with a pulse oximetry of 77% on room air. Patient seen and evaluated and found to have clinical assessment consistent with acute hypoxemic respiratory failure as well as CHF decompensation. Patient admitted directly to telemetry and initiated on CHF protocol. Patient also found to have elevated D-dimer consistent with NSTEMI type II. Cardiology was consulted.. CT angio chest was remarkable for acute bilateral pulmonary emboli with evidence of right heart strain. Patient underwent TTE revealing EF 50-55% with normal-sized LV, normal LV systolic function, normal LV wall thickness, normal LV segmental wall motion. RV is mildly dilated. RVSP is 47mmHg. Patient was initiated on Lovenox 1 mg/kg twice daily. Patient underwent bilateral venous lower extremity Dopplers that was remarkable for DVT and left lower extremity. The patient has since been transitioned to Eliquis 10 mg twice daily x7 days that will then be transition to 5 mg twice daily for minimum of 3 months. Patient is medically clear for discharge. Follow up with: EFFIE SKY MD [Primary Care Provider] - 7 Days NURY BENAVIDES MD [Staff Physician] - 14 Days Prescriptions: AtorvaSTATin [Lipitor] 40 mg PO QHS #30 tab carvediloL [Coreg] 12.5 mg PO BID #60 tab Apixaban [Eliquis] 5 mg PO Q12HR #60 tablet Furosemide [Lasix TAB] 20 mg PO QDAY #30 tablet
--- NOTE | 2021-12-04 14:26 | Vascular Lab Report ---
DUPLEX DOPPLER LOWER EXTREMITY VEINS, BILATERAL INDICATION / CLINICAL INFORMATION: rule out DVT. TECHNIQUE: Duplex doppler imaging was performed through the veins of both lower extremities using chepe ous compression and other maneuvers. COMPARISON: None available. FINDINGS: RIGHT COMMON FEMORAL VEIN: Negative. RIGHT FEMORAL VEIN: Negative. RIGHT POPLITEAL VEIN: Occlusive thrombus. RIGHT CALF VEINS: Occlusive thrombus within the posterior tibial and peroneal veins. LEFT COMMON FEMORAL VEIN: Negative. LEFT FEMORAL VEIN: Negative. LEFT POPLITEAL VEIN: Negative. LEFT CALF VEINS: Negative. ADDITIONAL FINDINGS: None. IMPRESSION: 1. Acute occlusive DVT is visualized within the right popliteal and calf veins. The results were communicated by the machine set up operator paper goods to Dr. Pang at 11:20 AM. Scribed by: Sudha Diallo RDMS, BERET, YULI Scribed: 12/04/2021 1:13 PM I have reviewed the images, agree with this report, and edited this report as needed. Signer Name: Navid Rm MD Signed: 12/04/2021 2:21 PM Workstation Name: [employer]
[2021-12-04] MEDS ORDERED: LORazepam 2 MG/ML VIAL IV NR (17:30)
--- NOTE | 2021-12-04 17:44 | Progress Note ---
Subjective - Reason for Consult Consult date: 12/04/21 Reason for consult: MHE - Chief Complaint Chief complaint: SUBJECTIVE DATE SEEN:12/04/2021 Patient seen today. Patient not able to answer my questions. Nursing staff states that patient has been trying to remove everything and has been very restless. DATE SEEN:12/03/2021 Patient seen today on the medical floor after being transferred for shortness of breath. Patient was asleep in room with sitter.Nursing staff states that patient has been crying and whining. Patient is confused. Mental Status Exam - Vital signs Last Vital Signs Temp 98.0 F 12/04/21 15:58 Pulse 82 12/04/21 15:58 Resp 18 12/04/21 15:58 BP 142/53 12/04/21 15:58 Pulse Ox 84 12/04/21 15:58
[2021-12-04] MEDS: PARoxetine 20 MG TAB PO SCH (22:44)
[2021-12-04] MEDS: APIXABAN 5 MG TAB PO SCH (22:45)
[2021-12-04] MEDS: traZODone 50 MG TAB PO SCH (22:45)
[2021-12-04] MEDS: QUEtiapine 100 MG TAB PO SCH (22:45)
[2021-12-05 05:06] LABS: Hematocrit 30.3 % (30.3-42.9); Hemoglobin 10.1 gm/dl (10.1-14.3); Mean Corpuscular HGB Conc 34 % (30-34); Mean Corpuscular Volume 84 fl (79-97); Platelet Count 384 K/mm3 (140-440); Red Blood Count 3.61 M/mm3 (3.65-5.03); Red Cell Distribution Width 15.9 % (13.2-15.2)
[2021-12-05 05:15] LABS: INR 1.26 (0.87-1.13)
[2021-12-05 05:16] LABS: Partial Thromboplastin Time 35.5 Sec. (24.2-36.6)
[2021-12-05] MEDS: HYDROmorphone 0.5 MG/0.5 ML INJ IV PRN (06:15)
--- NOTE | 2021-12-05 09:02 | Electrocardiograph Report ---
[facility] Test Date: 2021-12-05 Test Time: 06:58:35 Pat Name: RESHMA BLACK Department: Room: A467 1 Gender: F [employer]ire Assembler: RODERICK : 1945 Requested By: HIMA MADISON Order Number: [id number] Reading MD: Matthew Chapin Measurements Intervals [place] Rate: 68 P: 50 TX: 140 QRS: 18 QRSD: 90 T: 11 QT: 504 QTc: 535 Interpretive Statements Sinus rhythm Prolonged QT interval No previous ECG available for comparison Electronically Signed On 12-05-2021 9:02:01 EDT by Matthew Chapin
--- NOTE | 2021-12-05 10:07 | Progress Note ---
Assessment and Plan Patient is 76-year-old female with a past medical history of dementia, hypertension, CHF, seizures, obesity, who was admitted to the [facility] for psychiatric stabilization and found to have increased confusion and pulse ox of 77% on room air Acute HFpEF NSTEMI suspect type II Bilateral PEs-shown on CT DVT Hypertension Altered mental status Vascular dementia Hyperlipidemia Seizure disorder Elevated D-dimer Echo 12/02/2021-EF 50 to 55%. Mild diastolic dysfunction is present impaired laxation pattern. Right ventricle systolic function is normal. Right ventricle is mildly dilated. Highest mean aortic valve gradient 50 mmHg. Peak aortic valve gradient is 25 mmHg. Mild aortic stenosis. No aortic regurgitation is present mild tricuspid regurgitation. Trace pulmonic regurgitation Plan: Telemetry reviewed patient in sinus rhythm with no events Troponin is noted to be minimally elevated and stable. Suspect troponin elevation due to bilateral PEs and acute HFpEF Patient anticoagulated on Eliquis. Management per primary team Patient currently on atorvastatin 80 mg p.o. nightly, carvedilol 12.5 mg p.o. twice daily No aspirin, GREG, or ARB due to documented allergy Due to bilateral PEs and patient mental status unable to perform ischemic eval at this time Cardiac status otherwise stable. Patient seen in conjunction with Dr. Chapin who agrees with this plan of care - Patient Problems (1) Acute hypoxemic respiratory failure Current Visit: Yes Status: Acute (2) NSTEMI (non-ST elevated myocardial infarction) Current Visit: Yes Status: Acute (3) CHF (congestive heart failure) Current Visit: No Status: Acute Qualifiers: Heart failure chronicity: chronic (4) Cerebral atherosclerosis Current Visit: No Status: Acute (5) Generalized anxiety disorder Current Visit: No Status: Acute (6) Hypertension Current Visit: No Status: Acute Qualifiers: Hypertension type: primary hypertension Qualified Code(s): I10 - Essential (primary) hypertension (7) Major depression Current Visit: No Status: Acute Qualifiers: Psychotic features: with psychotic features (8) Vascular dementia with behavioral disturbance Current Visit: No Status: Acute (9) Bilateral pulmonary embolism Current Visit: Yes Status: Acute (10) DVT (deep venous thrombosis) Current Visit: Yes Status: Acute (11) Obesity Current Visit: No Status: Acute Qualifiers: Body mass index: BMI 30.0-30.9 Subjective Date of service: 12/05/21 Principal diagnosis: Bilateral PEs Interval history: Patient resting in bed. Patient remains with altered mental status Sinus 70s on monitor with no event Objective Vital Signs Temp Pulse Resp BP Pulse Ox 12/05/21 03:40 95 12/05/21 03:39 98.4 F 75 20 130/72 77 L 12/05/21 01:00 95 12/04/21 22:57 98.3 F 69 19 129/59 95 12/04/21 22:44 80 118/46 12/04/21 21:39 95 12/04/21 19:16 93 12/04/21 19:15 98.0 F 80 18 118/46 86 12/04/21 15:58 98.0 F 82 18 142/53 84 12/04/21 14:00 82 12/04/21 13:22 99.0 F 18 136/53 12/04/21 13:00 98 - Physical Examination General: Other (Altered mental status) HEENT: Positive: Normocephaly Neck: Positive: trachea midline Cardiac: Positive: Reg Rate and Rhythm Lungs: Positive: clear to auscultation, Normal Breath Sounds Neuro: Positive: Grossly Intact Abdomen: Positive: Soft Skin: Negative: Rash, Suspicious Lesions, Ulceration Extremities: Present: upper extr. pulses, edema - Labs and Meds Coagulation 12/05/21 Range/Units 04:25 PT 17.3 H (12.2-14.9) Sec. INR 1.26 H (0.87-1.13) APTT 35.5 (24.2-36.6) Sec. CBC 12/05/21 Range/Units 04:25 WBC 5.8 (4.5-11.0) K/mm3 RBC 3.61 L (3.65-5.03) M/mm3 Hgb 10.1 (10.1-14.3) gm/dl Hct 30.3 (30.3-42.9) % Plt Count 384 (140-440) K/mm3 - Imaging and Cardiology Echo: report reviewed - Telemetry EKG Rhythm: Sinus Rhythm - EKG Sinus rhythms and dysrhythmias: sinus rhythm
[2021-12-05] MEDS: FUROSEMIDE 20 MG TAB PO SCH (10:21)
[2021-12-05] MEDS: APIXABAN 5 MG TAB PO SCH ×2 (10:22→22:42)
[2021-12-05] MEDS: carvediloL 12.5 MG TAB PO SCH ×2 (10:22→22:43)
--- NOTE | 2021-12-05 13:44 | Progress Note ---
Subjective - Reason for Consult Consult date: 12/05/21 Reason for consult: MHE - Chief Complaint Chief complaint: SUBJECTIVE DATE SEEN:12/05/2021 Patient seen today sitting up in bed with lunch tray in front of her. Patient states she is "well". Nursing states that patient has been calm and at her baseline with behaviors and confusion. Psych will sign off at this time. Patient can be discharged to previous senior living. DATE SEEN:12/04/2021 Patient seen today. Patient not able to answer my questions. Nursing staff states that patient has been trying to remove everything and has been very restless. DATE SEEN:12/03/2021 Patient seen today on the medical floor after being transferred for shortness of breath. Patient was asleep in room with sitter.Nursing staff states that patient has been crying and whining. Patient is confused. Mental Status Exam - Vital signs Last Vital Signs Temp 98.4 F 12/05/21 03:39 Pulse 75 12/05/21 03:39 Resp 20 12/05/21 03:39 BP 130/72 12/05/21 03:39 Pulse Ox 95 12/05/21 10:00
[2021-12-05] MEDS: QUEtiapine 100 MG TAB PO SCH (22:40)
[2021-12-05] MEDS: PARoxetine 20 MG TAB PO SCH (22:41)
[2021-12-05] MEDS: traZODone 50 MG TAB PO SCH (22:41)
[2021-12-06] MEDS: HYDROmorphone 0.5 MG/0.5 ML INJ IV PRN (03:24)
[2021-12-06] MEDS: oxyCODONE /ACETAMINOPHEN 5-325MG TAB PO PRN (06:42)
[2021-12-06] MEDS: carvediloL 12.5 MG TAB PO SCH ×2 (10:43→21:56)
[2021-12-06] MEDS: APIXABAN 5 MG TAB PO SCH ×2 (10:43→21:54)
[2021-12-06] MEDS: FUROSEMIDE 20 MG TAB PO SCH (10:43)
[2021-12-06] MEDS: traZODone 50 MG TAB PO SCH (21:55)
[2021-12-06] MEDS: PARoxetine 20 MG TAB PO SCH (21:55)
[2021-12-06] MEDS: QUEtiapine 100 MG TAB PO SCH (21:55)
[2021-12-07] MEDS: oxyCODONE /ACETAMINOPHEN 5-325MG TAB PO PRN (07:57)
[2021-12-07] MEDS: carvediloL 12.5 MG TAB PO SCH ×2 (09:21→21:08)
[2021-12-07] MEDS: FUROSEMIDE 20 MG TAB PO SCH (09:21)
[2021-12-07] MEDS: APIXABAN 5 MG TAB PO SCH ×2 (09:21→21:08)
[2021-12-07] MEDS: traZODone 50 MG TAB PO SCH (21:07)
[2021-12-07] MEDS: PARoxetine 20 MG TAB PO SCH (21:09)
[2021-12-07] MEDS: QUEtiapine 100 MG TAB PO SCH (21:09)
[2021-12-08] MEDS: carvediloL 12.5 MG TAB PO SCH ×2 (09:00→21:42)
[2021-12-08] MEDS: APIXABAN 5 MG TAB PO SCH ×2 (09:01→21:42)
[2021-12-08] MEDS: FUROSEMIDE 20 MG TAB PO SCH (11:36)
[2021-12-08] MEDS: HYDROmorphone 0.5 MG/0.5 ML INJ IV PRN (17:41)
[2021-12-08] MEDS: PARoxetine 20 MG TAB PO SCH (21:42)
[2021-12-08] MEDS: traZODone 50 MG TAB PO SCH (21:43)
[2021-12-08] MEDS: QUEtiapine 100 MG TAB PO SCH (21:46)
[2021-12-09] MEDS: FUROSEMIDE 20 MG TAB PO SCH (10:13)
[2021-12-09] MEDS: APIXABAN 5 MG TAB PO SCH ×2 (10:13→21:33)
[2021-12-09] MEDS: carvediloL 12.5 MG TAB PO SCH ×2 (10:14→21:34)
[2021-12-09] MEDS: PARoxetine 20 MG TAB PO SCH (21:33)
[2021-12-09] MEDS: traZODone 50 MG TAB PO SCH (21:34)
[2021-12-09] MEDS: QUEtiapine 100 MG TAB PO SCH (21:34)
[2021-12-10 04:39] VITALS: BP 107/52
[2021-12-10] MEDS: carvediloL 12.5 MG TAB PO SCH (10:30)
[2021-12-10] MEDS: APIXABAN 5 MG TAB PO SCH (10:30)
[2021-12-10] MEDS: FUROSEMIDE 20 MG TAB PO SCH (10:30)
[2021-12-11] MEDS ORDERED: APIXABAN 5 MG TAB PO SCH (22:00)
== END 2021-12-10 17:00 | DRG 189 ==
LOC: UNDOADMIN 13:45 → 4A 13:45
PROVIDERS: ADMIT Internal Medicine; ATTEND Student in an Organized Health Care Education/Training Program
DX: J96.01 Acute respiratory failure with hypoxia (principal); I21.A1 Myocardial infarction type 2; I26.99 Other pulmonary embolism without acute cor pulmonale; F01.51 Vascular dementia, unspecified severity, with behavioral disturbance; I82.402 Acute embolism and thrombosis of unspecified deep veins of left lower extremity; I67.2 Cerebral atherosclerosis; F32.9 Major depressive disorder, single episode, unspecified; E78.5 Hyperlipidemia, unspecified; F41.1 Generalized anxiety disorder; G40.909 Epilepsy, unspecified, not intractable, without status epilepticus; E83.42 Hypomagnesemia; I11.0 Hypertensive heart disease with heart failure; Z83.3 Family history of diabetes mellitus; Z82.49 Family history of ischemic heart disease and other diseases of the circulatory system; Z88.8 Allergy status to other drugs, medicaments and biological substances; Z95.1 Presence of aortocoronary bypass graft
CPT/HCPCS: 36415; 71275; 80053; 80061; 82803; 82962; 83735; 84439; 84443; 84484; 85025; 85027; 85610; 85730; 93005; 93306; 93970; 94760; G0378; C8929; J1170; J1650; J1940; J2060; J3475; J3486; Q9967; U0003